=== PATIENT | male | born 1985 | race African-American/Black ===

== ENCOUNTER 2016-11-18 12:39 | Emergency (ER) | payer SELFPAY ==
[2016-11-18 12:51] VITALS: BP 137/91
--- NOTE | 2016-11-18 13:12 | UC ---
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 - past 2 days heavier workload than normal can't recall any trauma in the last 2 days denies shortness of breath , diaphoresis, nausea , dizziness denies fever and cough hasn't taken any medication for pain - History of Current Complaint Chief Complaint: UCChestPain Stated Complaint: CHEST COMPLAINT ARM NUMBNESS Time Seen by Provider: 11/18/16 13:05 Hx Obtained From: Patient - Allergy/Home Medications Allergies/Adverse Reactions: Allergies Allergy/AdvReac Type Severity Reaction Status Date / Time No Known Allergies Allergy Verified 11/18/16 12:45 PMH/Surg Hx/FS Hx/Imm Hx Previously Healthy: Yes Endocrine History Of: Denies: Diabetes, Thyroid Disease Cardiovascular History Of: Denies: Cardiac Disorders, Hypertension Respiratory History Of: Denies: Asthma GI/ History Of: Denies: Ulcer, Kidney Stones - LT FLANK PAIN/HEMATURIA /// - Surgical History Surgical History: None - Family History Known Family History: Positive: Cardiac Disease - father, Hypertension - father Negative: Diabetes - Social History Occupation: Employed Full-time Alcohol Use: Occasionally Substance Use Type: None Smoking Status (MU): Former Smoker Review of Systems Constitutional: Negative Skin: Negative Eyes: Negative ENT: Negative Respiratory: Negative Cardiovascular: Chest Pain Gastrointestinal: Negative Genitourinary: Negative Motor: Negative Neurovascular: Negative Musculoskeletal: Negative Neurological: Negative Psychological: Negative All Other Systems Reviewed And Are Negative: Yes Physical Exam Triage Information Reviewed: Yes Appearance: No Pain Distress, Well-Nourished Vital Signs: Initial Vital Signs Temp 98.1 F 11/18/16 12:46 Pulse 87 11/18/16 12:46 Resp 18 11/18/16 12:46 BP 137/91 11/18/16 12:46 Pulse Ox 98 11/18/16 12:46 Vital Signs Reviewed: Yes Eyes: Positive: Conjunctiva Clear ENT: Positive: Pharynx normal, TMs normal. Negative: Nasal congestion Neck: Positive: No Lymphadenopathy Respiratory: Positive: Chest non-tender, Lungs clear, Normal breath sounds, No respiratory distress Cardiovascular: Positive: RRR, No Murmur, Pulses Normal Abdomen Description: Positive: Nontender, No Organomegaly, Soft Bowel Sounds: Positive: Present Musculoskeletal: Positive: Other: - tenderness and edema in musculature between left scapula trapezius tenderness throughout worse with movement of left arm Neurological: Positive: Alert Psychological Exam: Normal Skin Exam: Normal Course/Dx - Course Course Of Treatment: exam completed. pain is reproducible in between shoulder blades and trapezius. EKG due to complaint and family history- NSR early repolarization pattern, no ectopy. will rx for muscle relaxer, NSAIDS and PT if no improvement - Differential Dx - Multi-Symptom Provider Diagnoses: muscle strain upper back, left shoulder, trapezius Discharge - Discharge Plan Condition: Stable Disposition: HOME Prescriptions: Cyclobenzaprine TAB* [Flexeril TAB*] 10 mg PO BEDTIME #3 tab Ibuprofen TAB* [Motrin TAB* 800 MG] 800 mg PO TID #30 tab Patient Education Materials: Musculoskeletal Pain (ED), Muscle Strain (ED) Forms: *Work Release Referrals: No Primary Care Phys,NOPCP [Primary Care Provider] - [facility] [place] [facility] [Outside] Additional Instructions: Take flexeril as directed. Do not drink, drive or operate heavy machinery while on flexeril. Take acetaminophen or ibuprofen for fever or pain. Please call physical therapist for further evaluation and treatment of your back and shoulder pain. Increase fluids and rest. Please review your discharge instructions. If your symptoms do not improve please call your primary care provider or return to urgent care.
== END 2016-11-18 13:47 | disposition home or self-care (01) ==
LOC: UCEAST 12:39
DX: S29.012A Strain of muscle and tendon of back wall of thorax, initial encounter (principal); S46.912A Strain of unspecified muscle, fascia and tendon at shoulder and upper arm level, left arm, initial encounter; X50.0XXA Overexertion from strenuous movement or load, initial encounter; Y93.89 Activity, other specified; Y92.89 Other specified places as the place of occurrence of the external cause; Y99.0 Civilian activity done for income or pay; Z87.891 Personal history of nicotine dependence; Z82.49 Family history of ischemic heart disease and other diseases of the circulatory system
CPT/HCPCS: 93005; 99212; G0463

== ENCOUNTER 2018-03-23 00:04 | Emergency (ER) | payer SELFPAY ==
[2018-03-23 00:40] LABS: ABS Basophils 0 10^3/ul (0-0.2); ABS Eosinophils 0.4 10^3/ul (0-0.6); ABS Lymphocytes 1.4 10^3/ul (1.0-4.8); ABS Monocytes 0.9 10^3/ul (0-0.8); ABS Neutrophils 4.4 10^3/ul (1.5-7.7); ABS Nucleated RBC 0 10^3/ul; Eosinophil % 6.1 % (0-6); Hematocrit 45 % (42-52); Hemoglobin 15.8 g/dl (14.0-18.0); Lymphocyte % 19.5 % (25-47); Mean Corpuscular HGB Conc 36 g/dl (31-36); Mean Corpuscular Hemoglobin 34 pg (27-31); Mean Corpuscular Volume 95 fL (80-94); Mean Platelet Volume 6.5 um3 (7.4-10.4); Nucleated Red Blood Cells % 0; Platelet Count 251 10^3/ul (150-450); Red Blood Count 4.68 10^6/ul (4.0-5.4); Red Cell Distribution Width 13 % (10.5-15); White Blood Count 7.2 10^3/ul (3.5-10.8)
[2018-03-23] MEDS ORDERED: Fluconazole 100 MG TAB* TAB PO ONE (00:46)
[2018-03-23 00:51] LABS: EGFR Non-African American 84.2 (>60)
[2018-03-23 01:05] VITALS: BP 144/79
--- NOTE | 2018-03-23 02:32 | ED ---
Juan C Duenas Natalie, scribed for Prabhu Gonzalez MD on 03/23/18 at 0046 . Lower Extremity - HPI Summary HPI Summary: The patient is a 33 y/o M presenting to the ED c/o bilateral foot swelling starting a month ago. The swelling is worse in the right foot than the left one. There is blistering and throbbing pain with palpation and erythema. There is intermittent itching due to dryness. He tried Clotrimazole and Gold Vega powder to no relief. The pain is rated 8/10 in severity. Pt additionally c/o diaphoresis in feet. Pt denies injury to feet and purposeful wetness. He also changed the shoes and socks he was wearing. - History of Current Complaint Chief Complaint: EDExtremityLower Stated Complaint: POSSIBLE INFECTION IN BOTH FEET Time Seen by Provider: 03/23/18 00:19 Hx Obtained From: Patient Mechanism Of Injury: Unknown Onset of Pain: Days Onset/Duration: Still Present Severity Initially: Mild Severity Currently: Severe Pain Intensity: 8 Pain Scale Used: 0-10 Numeric Timing: Constant Character Of Pain: Throbbing Associated Signs And Symptoms: Positive: Swelling, Redness Aggravating Factor(s): Other - Clotrimazole Alleviating Factor(s): Nothing - Allergies/Home Medications Allergies/Adverse Reactions: Allergies Allergy/AdvReac Type Severity Reaction Status Date / Time No Known Allergies Allergy Verified 03/23/18 00:12 PMH/Surg Hx/FS Hx/Imm Hx Endocrine/Hematology History: Denies: Hx Diabetes, Hx Thyroid Disease Cardiovascular History: Denies: Hx Hypertension Respiratory History: Denies: Hx Asthma GI History: Reports: Other GI Disorders - hernia Denies: Hx Ulcer History: Denies: Hx Kidney Stones - LT FLANK PAIN/HEMATURIA /// - Immunization History Date of Tetanus Vaccine: UTD Infectious Disease History: No Infectious Disease History: Denies: Hx Clostridium Difficile, Hx Hepatitis, Hx Human Immunodeficiency Virus (HIV), Hx of Known/Suspected MRSA, Hx Shingles, Hx Tuberculosis, Hx Known/ Suspected VRE, Hx Known/Suspected VRSA, History Other Infectious Disease, Traveled Outside the [place] in Last 30 Days - Family History Known Family History: Positive: Cardiac Disease - father, Hypertension - father Negative: Diabetes - Social History Alcohol Use: Occasionally Hx Substance Use: Yes Substance Use Type: Reports: None Hx Tobacco Use: Yes Smoking Status (MU): Former Smoker Review of Systems Positive: Skin Diaphoresis Positive: Edema - bilateral feet without injury Positive: Other - itching, blistering, redness to feet All Other Systems Reviewed And Are Negative: Yes Physical Exam - Summary Physical Exam Summary: Appearance: Well appearing, no pain distress Skin: warm, dry, reflects adequate perfusion, thickened macerated skin on dorsum of bilateral feet with tissue break between toes, blistering on right lateral foot, soles not effected Head/face: normal Eyes: EOMI, DAKN, bloodshot eyes, conjunctival injection ENT: normal Neck: supple, non-tender Respiratory: CTA, breath sounds present Cardiovascular: RRR, pulses symmetrical Abdomen: non-tender, soft Bowel Sounds: present Musculoskeletal: normal, strength/ROM intact Neuro: normal, sensory motor intact, A&Ox3 Triage Information Reviewed: Yes Vital Signs On Initial Exam: Initial Vitals Temp Pulse Resp BP Pulse Ox 98.5 F 82 15 127/88 98 03/23/18 00:08 03/23/18 00:08 03/23/18 00:08 03/23/18 00:08 03/23/18 00:08 Vital Signs Reviewed: Yes Diagnostics - Vital Signs Vital Signs Temp Pulse Resp BP Pulse Ox 03/23/18 00:08 98.5 F 82 15 127/88 98 - Laboratory Lab Results: Lab Results 03/23/18 03/23/18 Range/Units 00:25 00:25 WBC 7.2 (3.5-10.8) 10^3/ul RBC 4.68 (4.0-5.4) 10^6/ul Hgb 15.8 (14.0-18.0) g/dl Hct 45 (42-52) % MCV 95 H (80-94) fL MCH 34 H (27-31) pg MCHC 36 (31-36) g/dl RDW 13 (10.5-15) % Plt Count 251 (150-450) 10^3/ul MPV 6.5 L (7.4-10.4) um3 Neut % (Auto) 61.0 (38-83) % Lymph % (Auto) 19.5 L (25-47) % [place] % (Auto) 12.9 H (0-7) % Eos % (Auto) 6.1 H (0-6) % Baso % (Auto) 0.5 (0-2) % Absolute Neuts (auto) 4.4 (1.5-7.7) 10^3/ul Absolute Lymphs (auto) 1.4 (1.0-4.8) 10^3/ul Absolute Monos (auto) 0.9 H (0-0.8) 10^3/ul Absolute Eos (auto) 0.4 (0-0.6) 10^3/ul Absolute Basos (auto) 0 (0-0.2) 10^3/ul Absolute Nucleated RBC 0 10^3/ul Nucleated RBC % 0 Sodium 137 L (139-145) mmol/L Potassium 3.6 (3.5-5.0) mmol/L Chloride 102 (101-111) mmol/L Carbon Dioxide 26 (22-32) mmol/L Anion Gap 9 (2-11) mmol/L BUN 11 (6-24) mg/dL Creatinine 1.03 (0.67-1.17) mg/dL Est GFR ( Amer) 108.3 (>60) Est GFR (Non-Af Amer) 84.2 (>60) BUN/Creatinine Ratio 10.7 (8-20) Glucose 92 (70-100) mg/dL Calcium 8.7 (8.6-10.3) mg/dL Total Bilirubin 0.50 (0.2-1.0) mg/dL GGT 34 (9-64.0) U/L AST 22 (13-39) U/L ALT 17 (7-52) U/L Alkaline Phosphatase 60 (34-104) U/L Total Protein 7.1 (6.4-8.9) g/dL Albumin 4.0 (3.2-5.2) g/dL Globulin 3.1 (2-4) g/dL Albumin/Globulin Ratio 1.3 (1-3) Result Diagrams: 03/23/18 00:25 03/23/18 00:25 Lab Statement: Any lab studies that have been ordered have been reviewed, and results considered in the medical decision making process. Lower Extremity Course/Dx - Course Course Of Treatment: Patient with chronic appearing maceration, erythema and swelling of the dorsums of his feet. There is whitish discoloration between all of his toes. This appears to be related to Fuentes. He states that it seemed to have gotten worse after Chlortrimazole. I will treat him with oral Diflucan, refer him to podiatry and to use topical nystatin powder. - Diagnoses Provider Diagnoses: Tinea pedis, Alcohol ingestion Discharge - Sign-Out/Discharge Documenting (check all that apply): Discharge/Admit/Transfer - Discharge Plan Condition: Good Disposition: HOME Prescriptions: Fluconazole 150 MG (NF) [Diflucan 150 mg (NF)] 150 mg PO WEEKLY #5 tab Nystatin TOP POWDER* 1 applic TOPICAL TID #1 btl Patient Education Materials: Athlete's Foot (ED) Referrals: [facility] [Outside] Oscar Delatorre DPM [Doctor of Podiatric Medicine] - Additional Instructions: Keep feet clean and dry. Work the powder in between your toes. Call the horse racer in the morning for follow-up on your feet. Call the [facility] for follow-up with a primary care physician. - Billing Disposition and Condition Condition: GOOD Disposition: HOME The documentation as recorded by the Juan C weaver Natalie accurately reflects the service I personally performed and the decisions made by me, Prabhu Gonzalez MD.
== END 2018-03-23 01:06 | disposition home or self-care (01) ==
LOC: ED 00:04
DX: B35.3 Tinea pedis (principal); Z87.891 Personal history of nicotine dependence
CPT/HCPCS: 36415; 80053; 82977; 85025; 99283; A9270-GY